=== PATIENT | male | born 1995 | race Native Hawaiian/Other Pacific Islander ===

== ENCOUNTER → 2019-05-06 20:56 | Outpatient (CLI) | payer OTHER | END | disposition home or self-care (01) | LOC: AMB 20:56 | DX: Z04.1 Encounter for examination and observation following transport accident (principal) ==

== ENCOUNTER 2020-09-20 18:42 | Outpatient (CLI) | payer OTHER | END 2020-09-20 21:14 | disposition home or self-care (01) | LOC: RAD 18:42 | PROVIDERS: ATTEND Physician Assistant | DX: M79.673 Pain in unspecified foot (principal) ==

== ENCOUNTER 2021-12-28 20:12 | Outpatient (CLI) | payer OTHER | END 2021-12-28 23:00 | LOC: RAD 20:12 | PROVIDERS: ATTEND Physician Assistant | DX: M25.571 Pain in right ankle and joints of right foot (principal) ==

== ENCOUNTER 2022-02-08 18:13 | Outpatient (CLI) | payer OTHER | END 2022-02-08 19:36 | disposition home or self-care (01) | LOC: RAD 18:13 | PROVIDERS: ATTEND Physician Assistant | DX: M54.2 Cervicalgia (principal); M54.40 Lumbago with sciatica, unspecified side; G89.29 Other chronic pain ==